=== PATIENT | female | born 1980 | race American Indian/Alaskan Native ===

== ENCOUNTER 2022-01-27 10:01 | Outpatient (CLI) | payer OTHER ==
--- NOTE | 2022-01-27 16:50 | XRay Report ---
LUMBAR SPINE 3 VIEWS INDICATION: Back pain. COMPARISON: No relevant prior imaging study available. FINDINGS: VERTEBRAE: No acute fracture. Normal alignment. DISC SPACES: Multilevel osteophytes are seen without significant disc space loss. FACET JOINTS: No significant abnormality. SOFT TISSUES: No significant abnormality. ADDITIONAL FINDINGS: No additional significant findings. IMPRESSION: Mild lumbar spondylosis. Signer Name: Doyle Llanos MD Signed: 01/27/2022 4:46 PM Workstation Name: [employer]
== END 2022-01-27 10:02 | disposition home or self-care (01) ==
LOC: XRAY 10:01
PROVIDERS: ATTEND Internal Medicine
DX: M47.816 Spondylosis without myelopathy or radiculopathy, lumbar region (principal)
CPT/HCPCS: 72100